=== PATIENT | male | born 2005 | race Two or more races ===

== ENCOUNTER 2023-04-14 23:22 | Emergency (ER) | payer OTHER ==
[~2023-04-14] VITALS: Ht 177.8 cm; Wt 81.6 kg
[2023-04-15 02:12] LABS: HEMATOCRIT 45.6 % (39.0-48.0); HEMOGLOBIN 16.1 g/dL (13-16.00); MEAN CELL VOLUME 86.9 fL (80.0-100.00); MEAN CORPUSCULAR HEMOGLOBIN 30.6 pg (27.00-32.0); MEAN CORPUSCULAR HGB CONC 35.3 g/dl (32.0-36.0); RED BLOOD COUNT 5.25 M/uL (4.00-6.00); RED CELL DISTRIBUTION WIDTH 13.5 % (11.5-14.5)
[2023-04-15 02:39] LABS: ALBUMIN 3.6 gm/dL (3.4-5.0); BILIRUBIN TOTAL 0.87 mg/dL (0.3-1.2); CALCIUM 9.1 mg/dL (8.5-10.1); CREATININE SERUM 0.93 mg/dL (0.70-1.30); GFR 104.67; GLOBULINA 4.2 G/DL (2.4-3.5); POTASSIUM 4.64 mEq/L (3.5-5.1); TOTAL PROTEIN 7.8 gm/dL (6.4-8.2)
[2023-04-15 02:50] LABS: PLATELET COUNT 12 K/uL (150-450)
[2023-04-15 03:08] LABS: COCAINE NEGATIVE (NEGATIVE); METHADONE NEGATIVE (NEGATIVE); OPIATES NEGATIVE (NEGATIVE); THC ( Cannabinoids) POSITIVE (NEGATIVE)
[2023-04-15 05:31] LABS: INR 1.03; PARTIAL THROMBOPLASTIN TIME 32.4 SECONDS (22.0-34.0); PROTHROMBIN TIME 10.8 SECONDS (9.0-11.5)
[2023-04-15 08:58] LABS: HEMATOCRIT 43.5 % (39.0-48.0); HEMOGLOBIN 15.6 g/dL (13-16.00); MEAN CELL VOLUME 84.9 fL (80.0-100.00); MEAN CORPUSCULAR HEMOGLOBIN 30.4 pg (27.00-32.0); MEAN CORPUSCULAR HGB CONC 35.8 g/dl (32.0-36.0); RED BLOOD COUNT 5.13 M/uL (4.00-6.00)
[2023-04-15 09:03] LABS: ALBUMIN 3.5 gm/dL (3.4-5.0); BILIRUBIN TOTAL 0.96 mg/dL (0.3-1.2); BILIRUBIN,CONJUGATED 0.37 mg/dL (0.0-0.2); BILIRUBIN,UNCONJUGATED 0.59 mg/dL (0.0-0.6); TOTAL PROTEIN 7.3 gm/dL (6.4-8.2)
[2023-04-15 10:06] LABS: PLATELET COUNT 11 K/uL (150-450)
[2023-04-15 10:27] LABS: PH,URINE 7.5 (5.0-8.0); URINE APPEARANCE Clear; URINE BILIRRUBIN Negative (NEGATIVE); URINE COLOR Yellow; URINE GLUCOSE Negative (NEGATIVE); URINE LEUKOCYTE Negative; URINE NITRATE Negative; URINE PROTEIN Trace (NEGATIVE)
[2023-04-15 10:31] LABS: URINE EPITHELIAL CELLS 3.3 uL (0.0-38.8); URINE WBC 6.4 uL (0.0-23.2)
[2023-04-15 10:35] LABS: URINE BLOOD TRACE
[2023-04-15 17:34] LABS: ALBUMIN 3.7 gm/dL (3.4-5.0); BILIRUBIN TOTAL 1.14 mg/dL (0.3-1.2); CREATININE SERUM 0.73 mg/dL (0.70-1.30); GFR 138.41; GLOBULINA 4.3 G/DL (2.4-3.5); POTASSIUM 3.37 mEq/L (3.5-5.1)
[2023-04-15 22:33] LABS: HEMATOCRIT 39.3 % (39.0-48.0); HEMOGLOBIN 13.8 g/dL (13-16.00); MEAN CELL VOLUME 87.3 fL (80.0-100.00); MEAN CORPUSCULAR HEMOGLOBIN 30.7 pg (27.00-32.0); MEAN CORPUSCULAR HGB CONC 35.2 g/dl (32.0-36.0); RED CELL DISTRIBUTION WIDTH 13.6 % (11.5-14.5)
[2023-04-15 22:58] LABS: PLATELET COUNT 81 K/uL (150-450)
== END 2023-04-16 12:07 | disposition designated cancer center or children's hospital (05) ==
LOC: ER 23:23 → EMR PED 04-15 03:56 → ER 04-15 03:56 → EMR PED 04-16 12:07
PROVIDERS: General Practice; Student in an Organized Health Care Education/Training Program
DX: R41.0 Disorientation, unspecified (principal); T50.901A Poisoning by unspecified drugs, medicaments and biological substances, accidental (unintentional), initial encounter; M25.832 Other specified joint disorders, left wrist; R60.9 Edema, unspecified; Z20.822 Contact with and (suspected) exposure to COVID-19; Z91.018 Allergy to other foods